=== PATIENT | female | born 1955 | race Caucasian/White ===

== ENCOUNTER 2019-08-01 13:46 | Inpatient (IN) | payer MEDICARE ==
[~2019-08-01] VITALS: Ht 162.6 cm; Wt 110.7 kg
[2019-08-01] MEDS ORDERED: PROAIR HFA8.5 G1 INH (14:14)
[2019-08-01] MEDS ORDERED: CBD OIL (14:14)
[2019-08-01] MEDS ORDERED: LEVEMIR IN100 UNITS/ SC (14:15)
[2019-08-01] MEDS ORDERED: GLYBURIDE5 M1 PO (14:16)
[2019-08-01] MEDS ORDERED: HYDROCODON-ACE1 EA10 PO (14:16)
[2019-08-01] MEDS ORDERED: FERROUS SULFAT325 MG PO (14:17)
[2019-08-01] MEDS ORDERED: LIPITOR40 MG PO (14:17)
[2019-08-01] MEDS ORDERED: [UNRECOGNIZED DRUG - OTHER] (14:18)
[2019-08-01] MEDS ORDERED: LISINOPRIL20 MG PO (14:19)
[2019-08-01] MEDS ORDERED: NEURONTIN 300300 MG PO (14:19)
[2019-08-01] MEDS ORDERED: SYNTHROID100 MCG PO (14:19)
[2019-08-01] MEDS ORDERED: GLUCOPHAGE1000 MG PO (14:20)
[2019-08-01] MEDS ORDERED: FUROSEMIDE20 MG PO (14:20)
[2019-08-01] MEDS ORDERED: MOBIC7.5 MG PO (14:20)
[2019-08-01] MEDS ORDERED: TUMERIC (14:21)
[2019-08-01] MEDS ORDERED: BAYER CHEWABLE81 MG PO (14:21)
[2019-08-01 14:26] VITALS: BP 155/67
[2019-08-01 14:32] LABS: BASOPHILS 0.3 % (0-2); EOSINOPHILS 8.3 % (0-7); HEMATOCRIT 30.7 % (36.0-48.0); HEMOGLOBIN 9.4 g/dL (12-16); IMMATURE GRANULOCYTES 0.1 % (0-5); LYMPHOCYTES 31.3 % (15-50); MCH 28.4 pg (26.0-34.0); MCHC 30.6 g/dL (31.0-37.0); MCV 92.7 fL (80.0-100.0); MONOCYTES 8.6 % (2-11); NEUTROPHILS 51.4 % (40-80); RBC 3.31 10x6/uL (4.00-5.40); WBC 7.9 10x3/uL (4.8-10.8)
[2019-08-01 14:35] LABS: CALC OSMOLALITY 293 mosm/kg (275-300); CALCIUM 8.8 mg/dL (8.5-10.1); CARBON DIOXIDE 25.3 mmol/L (21.0-32.0); CHLORIDE - SERUM 108 mmol/L (98-107); CREATININE - SERUM 1.5 mg/dL (0.6-1.3); GLUCOSE 123 mg/dL (74-106); POTASSIUM - SERUM 4.9 mmol/L (3.5-5.1); SODIUM 143 mmol/L (136-145); UREA NITROGEN 34 mg/dL (7-18); eGFR NON AFRICAN AMERICAN 37 mL/min (90-120)
[2019-08-01 14:38] LABS: INR 0.95 (0.85-1.17); PROTIME 12.6 SECONDS (11.6-15.0)
[2019-08-01 14:39] LABS: APTT 31.3 SECONDS (22.8-39.4); PLATELET COUNT 283 10x3/uL (130-400)
[2019-08-01 14:49] LABS: ALBUMIN 3.2 g/dL (3.4-5.0); ALKALINE PHOSPHATASE 73 U/L (30-120); ALT (SGPT) 27 U/L (10-68); CKMB 4.7 U/L (0.0-3.6); CREATINE KINASE 143 UL (21-215); MAGNESIUM - SERUM 2.4 mg/dL (1.8-2.4); PROTEIN - SERUM 6.7 g/dL (6.4-8.2)
[2019-08-01 14:50] LABS: TROPONIN-I < 0.017 ng/mL (0.000-0.060)
--- NOTE | 2019-08-01 16:46 | NUR ---
TRANSFER FROM ER BY STRETCHER. CALL LIGHT IN REACH. WILL CONT. PLAN OF CARE.
[2019-08-01 17:20] VITALS: BP 155/67; BMI 42.0
[2019-08-01 19:23] VITALS: BP 112/55
--- NOTE | 2019-08-01 19:38 | NUR ---
RECEIVED BEDSIDE REPORT. PATIENT IS ALERT AND ORIENTED, RESTING COMFORTABLY IN BED. RESPIRATIONS ARE EVEN AND UNLABORED. NO S/S OF DISTRESS. NO C/O PAIN. NEEDS MET. CALL LIGHT WITHIN REACH. WILL CPOC.
[2019-08-01 20:00] VITALS: BP 143/68
[2019-08-02] VITALS: BP 115/49
[2019-08-02 04:00] VITALS: BP 119/62
[2019-08-02 05:05] LABS: BASOPHILS 0.4 % (0-2); HEMATOCRIT 29.5 % (36.0-48.0); HEMOGLOBIN 8.9 g/dL (12-16); IMMATURE GRANULOCYTES 0.2 % (0-5); LYMPHOCYTES 30.9 % (15-50); MCH 28.3 pg (26.0-34.0); MCHC 30.2 g/dL (31.0-37.0); MCV 93.7 fL (80.0-100.0); MEAN PLATELET VOLUME 10.6 fL (7.4-10.4); MONOCYTES 8.2 % (2-11); NEUTROPHILS 52.3 % (40-80); PLATELET COUNT 314 10x3/uL (130-400); RBC 3.15 10x6/uL (4.00-5.40); RDW 13.4 % (11.5-14.5)
[2019-08-02 05:10] LABS: BILIRUBIN NEGATIVE (NEGATIVE); GLUCOSE 100 mg/dL (NEGATIVE); KETONE NEGATIVE (NEGATIVE); NITRITE NEGATIVE (NEGATIVE); UROBILINOGEN NORMAL (NORMAL)
[2019-08-02 05:11] LABS: BACTERIA FEW /hpf (NEGATIVE); EPITHELIAL CELLS 0-5 /hpf (0-5); RED CELLS - URINE 0-5 /hpf (0-5); WHITE CELLS - URINE 0-5 /hpf (NEGATIVE)
[2019-08-02 05:18] LABS: ALBUMIN 2.9 g/dL (3.4-5.0); ANION GAP 12.4 mmol/L (8-16); BILIRUBIN - TOTAL 0.25 mg/dL (0.2-1.3); CALCIUM 8.7 mg/dL (8.5-10.1); CARBON DIOXIDE 24.6 mmol/L (21.0-32.0); CREATININE - SERUM 1.7 mg/dL (0.6-1.3); MAGNESIUM - SERUM 2.1 mg/dL (1.8-2.4); PHOSPHOROUS 4.9 mg/dL (2.5-4.9); PROTEIN - SERUM 6.1 g/dL (6.4-8.2)
--- NOTE | 2019-08-02 07:15 | NUR ---
RECIEVED PT IN BED AAOX4 RESP UNLABORED SKIN W/D COLOR WNL NAD NOTED PT DENIES ANY PAIN OR DISCOMFORT
[2019-08-02 10:17] VITALS: BP 119/56
[2019-08-02 11:30] VITALS: Ht 162.6 cm; Wt 110.7 kg
[2019-08-02] MEDS ORDERED: ELIQUIS5 MG PO (14:07)
[2019-08-02] MEDS ORDERED: BETAPACE 80 MG80 MG PO (14:10)
--- NOTE | 2019-08-02 17:40 | NUR ---
REVIEWED DISCHARGE INSTRUCTIONS WITH PT STATE UNDERSTANDING COPY GIVEN PT DISCHARGED HOME LEFT UNIT VIA W/C IN STABLE CONDITION WITH ALL PERSONAL BELONGINGS
--- NOTE | 2019-08-05 10:00 | EC ---
PATIENT:OLGA LIDIA GAMA DATE OF SERVICE: 08/01/19 SEX: F MEDICAL RECORD: [id number] DATE OF : 53 LOCATION:D.M2 D.211 AGE OF PATIENT: 64 ADMISSION DATE: 08/01/19 REFERRING PHYSICIAN: INTERPRETING PHYSICIAN: LISET RECINOS MD ECHOCARDIOGRAM REPORT ECHO CHARGES 4 ECHO COMPLETE Date: 08/02/19 CLINICAL DIAGNOSIS: NEW ONSET AFIB, EDEMA, ELEVATED BNP, SOB, AK ECHOCARDIOGRAPHIC MEASUREMENTS (adult normal given) AC root (d.<3.7cm) 2.5 cm LV Septum d (<1.2 cm> 1.1 cm Valve Excursion 1.6 cm LV Septum (systole) 1.4 cm Left Atria (s.<4.0cm> 5.3 cm LVPW d(<1.2cm) 1.1 cm RV (d.<2.3cm) 2.6 cm LVPW (sytole) 1.2 cm LV diastole(<5.6CM) 5.6 cm MV E-F(>70mm/sec) cm LV systole 4.8 cm LVOT Diameter 1.8 cm MV exc.(>10mm) cm Est.ejection fraction (50-75%) % DOPPLER: LVIT cm/sec A 61 cm/sec E 147 cm/sec LA cm/sec RVSP 20.7 mmHg LVOT 98 cm/sec AOP1/2T m/s Asc. Ao 158 cm/sec RVOT 88 cm/sec RA cm/sec PA 93 cm/sec AV Gradient Peak 10.0 mmHg AV Mean 5.2 mmHg AV Area 1.7 cm MV Gradient Peak 12.4 mmHg MV Mean 5.4 mmHg MV Area cm COMMENTS: Roof Bolter Helper: Pretty ROBLERO Concrete Finisher: 3 Dr. Rodriguez TAPE# PACS Pericardial Effusion N DATE OF SERVICE: Adequate 2D, color flow imaging, spectral Doppler, and M-Mode No LVH. LV internal dimensions are normal. Wall motion is normal. EF is greater than or equal to 55%. Aortic valve is tricuspid. No evidence of stenosis by Doppler interrogation. Left atrium is dilated at 5.3 cm. Mitral valve shows no prolapse. Mild plus MR. Right-sided chambers are grossly normal. Trace TR. ECHOCARDIOGRAM REPORT [id number] OLGA LIDIA GAMA TRANSINT:[id number] Voice Confirmation ID: [id number] DOCUMENT ID: [id number] LISET RECINOS MD at 1000 CC: [id number] DICTATION DATE: 08/02/19 1121 ART DEALER: 08/02/19 1347 DIS IN 08/02/19 [place] [id number] [place] [id number]
--- NOTE | 2019-08-05 12:02 | MORECARE ---
CASE MANAGEMENT DISCHARGE SUMMARY PATIENT: OLGA LIDIA GAMA UNIT: [id number] ADM DATE: 08/01/19 AGE: 64 : 54 SEX: F ROOM/BED: D.9871 AUTHOR: AISLINN FRANCIS PHYSICIAN: REFERRING PHYSICIAN: HERMES VENCES MD DATE OF SERVICE: 08/05/19 Discharge Plan Patient Name: OLGA LIDIA GAMA [facility] : 1955 Planned Disposition: Anticipated Discharge Date: Discharge Date: 08/02/2019 Expected LOS: 0 Initial Reviewer: [email or web address] Initial Review Date: 08/05/2019 Generated: 08/05/19 1:01 pm Patient Name: OLGA LIDIA GAMA Page [id number] at 1202 All edits/amendments must be made on the electronic document DICTATION DATE: 08/05/19 1201 THREAD GRINDER: KATELIN 08/05/19 1201 RPT#: [id number] DC DATE:08/02/19 STATUS: DIS IN [facility] [address] [place] [address] END OF REPORT
== END 2019-08-02 17:40 | disposition home or self-care (01) | DRG 309 ==
LOC: D.ER 13:46 → D.M2 14:53 → D.SDCHOLD 08-02 16:31 → D.M2 08-02 16:33
PROVIDERS: Family Medicine; ADMIT Internal Medicine Nephrology; ATTEND Internal Medicine Nephrology
DX: I48.20 Chronic atrial fibrillation, unspecified (principal); N17.9 Acute kidney failure, unspecified; Z68.41 Body mass index [BMI] 40.0-44.9, adult; D64.9 Anemia, unspecified; I10 Essential (primary) hypertension; E78.5 Hyperlipidemia, unspecified; M19.90 Unspecified osteoarthritis, unspecified site; E03.9 Hypothyroidism, unspecified; E66.01 Morbid (severe) obesity due to excess calories; E11.40 Type 2 diabetes mellitus with diabetic neuropathy, unspecified; Z79.4 Long term (current) use of insulin

== ENCOUNTER 2019-08-20 11:28 | Outpatient (CLI) | payer MEDICARE ==
[~2019-08-20] VITALS: Ht 162.6 cm; Wt 112.6 kg
--- NOTE | ~2019-08-20 | HEMODYNAMI ---
PATIENT:OLGA LIDIA GAMA MEDICAL RECORD: [id number] : 53 LOCATION:D.CAT ADMISSION DATE: 08/20/19 Generatedon:08/20/201913:06 Patient name: OLGA LIDIA GAMA Patient #: [id number] : 1955 Date of study: 08/20/2019 Page: Of Hemodynamic Procedure Report Patient Data Patient Demographics Procedure consent was obtained First Name: OLGA LIDIA Gender: Female Last Name: NATAN : 1955 [facility] Initial: L Age: 64 year(s) Patient #: [id number] Race: SSN: [id number] Additional ID: [id number] Contact details Address: [address] [place] [address] State: [place] City: [place] Zip code: [address] Admission Admission Data Admission Date: 08/20/2019 Admission Time: 11:28 Arrival Date: 08/20/2019 Arrival Time: 13:30 Admit Source: Other Insurance Payor: Medicare [facility] #: [id number] Height (in.): 63.78 BSA: 2.13 (m2) Height (cm.): 162 BMI: 42.68 (kg/m2) Weight (lbs.): 246.92 Weight (kg.): 112 Lab Results Lab Result Date: 08/20/2019 Lab Result Time: 0:00 Biochemistry Name Units Result Min Max BUN mg/dl 28 --(----)-* 7 18 Creatinine mg/dl 1.2 --(---*)-- 0.6 1.3 Procedure Procedure Types Cath Procedure Diagnostic Procedure Cardioversion External TOM Procedure Description Procedure Date Procedure Date: 08/20/2019 Procedure Start Time: 12:54 Procedure End Time: 13:01 Procedure Staff Name Function Declan Lopez MD Performing Physician Nisa [place] Program Technician Hilary Franco RT Monitor Nilda Balbuena RN Nurse Billy Do MD Additional personnel Procedure Data Cath Procedure Fluoroscopy Diagnostic fluoroscopy Total fluoroscopy Time: 0 time: 0 min min Diagnostic fluoroscopy Total fluoroscopy dose: 0 dose: 0 mGy mGy Contrast Material Contrast Material Type Amount (ml) Isovue 300 0 Estimated blood loss: 5 ml Procedure Complications No complications Procedure Medications Medication Administration Route Dosage Oxygen etCO2 Nasal cannula 2 l/min Hurricaine Sidney P.O. 1 Sprays Refer to Anesthesia Notes for Sedation Medications Hemodynamics Rest BSA: 2.13 (m2) O2 Consumption: Estimated: 216.45 (ml/min) O2 Consumption indexed : Estimated:101.62 (ml/min/m) Heart Rate: 92 (bpm) Snapshots Pre Cath Intra NCS Post Cath Vital Signs Time Heart Resp SPO2 etCO2 NIBP (mmHg) Rhythm Pain Sedation Rate (ipm) (%) (mmHg) Status Level (bpm) 12:48:37 95 16 94 0 147/83(112) A-Flutter (Missing) 10(A) 12:52:55 106 31 98 26.1 155/91(116) A-Fib (Missing) 10(A) 12:56:16 91 11 93 27.6 116/72(99) A-Fib (Missing) 9(A) 13:00:30 64 14 96 41 128/65(98) NSR (Missing) 9(A) 13:02:33 61 18 96 40.3 102/57(89) NSR (Missing) 10(A) Medications Time Medication Route Dose Verified Delivered Reason Notes Effectiv eness by by 12:53:09 Oxygen etCO2 2 Declan Munguia used for Nasal l/min St Neo Balbuena RN procedure cannula 12:53:19 Hurricaine P.O. 1 Declan Munguia Per Sidney Sprays St Neo Balbuena RN physician 12:53:23 Refer to Declan Munguia Anesthesia St Neo Balbuena RN Notes for Sedation Medications Procedure Log Time Note 12:34:13 Informed consent obtained and on chart 12:34:21 Arrival Date: 08/20/2019 1:30:00 PM 12:34:38 Admit Source: Other 12:34:41 Insurance Payor : Medicare 12:37:24 Patient Height : 63.78 inches 12:37:27 Patient Weight : 246.92 lbs 12:38:49 Lab Result : Creatinine 1.2 mg/dl 12:38:49 Lab Result : BUN 28 mg/dl 12:38:54 Diagnostic Cath Status : Elective 12:39:20 Procedure Status TOM. 12:39:23 Nilda Balbuena RN sent for patient. Start room use. 12:39:24 Time tracking: Regular hours (M-F 7:00 - 5:00) 12:39:27 Plan of Care:Hemodynamics will remain stable., Cardiac rhythm will remain stable., Comfort level will be maintained., Respiratory function will remain adequate., Patient/ family verbilizes understanding of procedure., Procedure tolerated without complication., Recovers from procedure without complications.. 12:41:01 Patient received from Pre/Post Procedure Room to CCL 3 Alert and oriented. Tansferred to table in Supine position. 12:41:02 Warm blankets applied, and arvin hugger turned on for patient comfort. 12:41:03 Correct patient and procedure confirmed by team. 12:41:03 ECG and BP/O2 sat monitors applied to patient. 12:42:23 Baseline sample Acquired. 12:42:23 Vital chart was started 12:44:18 Baseline sample Acquired. 12:44:27 H&P Date Dictated: 08/20/2019 Within 30 days and on chart., H&P Addendum completed by physician on day of procedure. (MUST COMPLETE FOR ALL OUTPATIENTS). 12:44:28 Pre-procedure instructions explained to patient. 12:44:29 Pre-op teaching completed and patient verbalized understanding. 12:44:30 Family in patients room. 12:44:32 Patient NPO since Midnight. 12:44:34 Is the patient allergic to Iodine/contrast media? No. 12:44:35 Was the patient premedicated? No 12:45:09 Patient diabetic? Yes. 12:45:11 If diabetic: On Metformin? No 12:45:13 Is patient on blood thinner?Yes 12:45:18 ACC The patient was administered the following blood thiners within the last 24 hours: Eliquis 12:45:21 Previous problem with sedation/anesthesia? No ? 12:45:23 Snore? Yes 12:45:24 Sleep apnea? No 12:45:27 Deviated septum? No 12:45:27 Opens mouth fully? Yes 12:45:28 Sticks out tongue? Yes 12:45:31 Airway obstruction? Yes asthma 12:45:40 Dentures? No ? 12:46:03 IV patent on arrival in left forearm with 0.9% NaCl at KVO. 12:46:07 Lab results completed and on chart. 12:46:20 Alarms reviewed by R. N. 12:46:21 Sharps counted by scrub and verified by R.N. 12:49:04 Baseline sample Acquired. 12:49:10 Rhythm: atrial fibrillation 12:52:03 Billy Do MD present and monitoring patient for TIVA. 12::04 --------ALL STOP TIME OUT------ 12::04 Final Timeout: patient, procedure, and site verified with staff and physician. All members of the team are in agreement. 12:52:10 Fire Safety Assessment: C--Open oxygen or nitrous oxide is being used. 12:52:12 Physical assessment completed. ASA score P 2 - A patient with mild systemic disease as per Declan Lopez MD. 12:52:17 Sedation plan: TIVA Medication:Propofol 12:53:09 Oxygen 2 l/min etCO2 Nasal cannula was administered by Nilda Balbuena RN; used for procedure; Verbal order read back and verified. 12:53:11 Defibrillator synced and charged to 200 Joules. 12:53:19 Hurricaine Sidney 1 Sprays P.O. was administered by Nilda Balbuena RN; Per physician; Verbal order read back and verified. 12:53:19 [facility] Tobacco Stripper present for TOM. 12:53:22 TOM started. 12:53:23 Refer to Anesthesia Notes for Sedation Medications was administered by Nilda Balbuena RN; ; Verbal order read back and verified. 12:53:32 Procedure started. 12:53:33 Full Disclosure recording started 12:53:36 Procedure type changed to Cath procedure, Diagnostic procedure, Cardioversion External, TOM 12:55:31 Quick combo pads placed on patients chest and back. 12:57:55 TOM completed. 12:58:06 Shock delivered. 12:58:38 Patient cardioverted to sinus rhythm . 12:58:50 Procedure ended.(Physican Out) 12:59:31 Fluoroscopy time 00.00 minutes. 12:59:35 Fluoroscopy dose: 0 mGy 12:59:35 Flurop Dose total: 0 12:59:48 Dose Area Product 0 mGy/cm. 12:59:52 Contrast amount:Isovue 300 0ml. 12:59:54 Maximum allowable dose exceeded? No. 12:59:55 Sharps counted by scrub and verified by R.N. 13:00:00 Post procedure rhythm: sinus rhythm 13:00:03 Estimated blood loss: 5 ml 13:00:04 Post procedure instruction explained to patient.Patient verbalizes understanding. 13:00:06 Patient needs reinforcement of post procedure teaching. 13:00:07 Procedure and supply charges have been captured, reviewed, submitted and are correct. 13:00:19 Procedure Complication : No complications 13:00:22 Vital chart was stopped 13:01:11 TOM Findings: TOM w/ cardioversion: no left atrial clot noted (proceed with cardioversion) 13:01:15 Operative report dictated upon procedure completion. 13:01:15 See physician's report for complete and final results. 13:01:17 Report given to Pre/Post Procedure Room. 13:01:20 Patient transfered to Pre/Post Procedure Room with Stretcher. 13:01:22 Procedure ended. 13:01:22 Full Disclosure recording stopped 13:01:26 End room use (Document Last) 13:01:51 Quick Combo opened to sterile field. 13:02:18 Quick Combo opened to sterile field. Device Usage Item Manufacture Quantity Catalog Hospital Part Current Minimal Lot# / Name Number Charge Number [facility] [employer] 2 [id number] 5 Combo Signature Audit [place] Stage Time Signature Unsigned Intra-Procedure 08/20/2019 Hilary Franco 1:02:18 PM RT(R) Intra-Procedure 08/20/2019 Nilda Balbuena RN 1:02:55 PM Intra-Procedure 08/20/2019 Declan Ramos 1:06:30 PM Neo [place]NI [place] [address] [place] [address]
[~2019-08-20 11:28] MED LIST: BAYER CHEWABLE81 MG PO; BETAPACE 80 MG80 MG PO; CBD OIL; ELIQUIS5 MG PO; FERROUS SULFAT325 MG PO; FUROSEMIDE20 MG PO; GLUCOPHAGE1000 MG PO; GLYBURIDE5 M1 PO; HYDROCODON-ACE1 EA10 PO; LEVEMIR IN100 UNITS/ SC; LIPITOR40 MG PO; LISINOPRIL20 MG PO; MOBIC7.5 MG PO; NEURONTIN 300300 MG PO; PROAIR HFA8.5 G1 INH; SYNTHROID100 MCG PO; TUMERIC; [UNRECOGNIZED DRUG - OTHER]
[2019-08-20 12:15] VITALS: BP 153/87; Ht 162.6 cm; Wt 112.6 kg
[2019-08-20 12:29] LABS: BASOPHILS 0.4 % (0-2); EOSINOPHILS 4.7 % (0-7); HEMATOCRIT 32.6 % (36.0-48.0); HEMOGLOBIN 10.1 g/dL (12-16); IMMATURE GRANULOCYTES 0.2 % (0-5); LYMPHOCYTES 30.2 % (15-50); MCV 90.3 fL (80.0-100.0); MONOCYTES 10.6 % (2-11); NEUTROPHILS 53.9 % (40-80); PLATELET COUNT 303 10x3/uL (130-400); RBC 3.61 10x6/uL (4.00-5.40); RDW 12.9 % (11.5-14.5); WBC 9.1 10x3/uL (4.8-10.8)
[2019-08-20 12:33] LABS: ANION GAP 12.3 mmol/L (8-16); CALCIUM 9.4 mg/dL (8.5-10.1); CARBON DIOXIDE 26.7 mmol/L (21.0-32.0); CREATININE - SERUM 1.2 mg/dL (0.6-1.3)
[2019-08-20 12:44] LABS: INR 1.19 (0.85-1.17)
--- NOTE | 2019-08-20 13:10 | NUR ---
PT REC'D TO ROOM 4 VIA STRETCHER, AWAKE AND ORIENTED. MONITORS ESTAB. DAUGHTER AT BS. SEE ECOLOGICAL MODELER. ALARMS ON AND C/L IN REACH.
--- NOTE | 2019-08-20 13:25 | NUR ---
VSS. CM - SR, HR 61. B/P 131/64. PT DENIES PAIN OR NEEDS.
--- NOTE | 2019-08-20 13:55 | NUR ---
PT RESTING QUIETLY, REPORTS "I CAN BREATHE BETTER". VSS. ALARMS ON AND C/L IN REACH.
--- NOTE | 2019-08-20 14:15 | NUR ---
VSS. CM - NSR. PIV D/C'D INTACT AND DSG APPLIED. PT ALLOWED UP TO GET DRESSED.
--- NOTE | 2019-08-20 14:20 | NUR ---
PT UP TO BR INDEPENDENTLY. ALL DISCHARGE INSTRUCTIONS REVIEWED WITH PT AND DAUGHTER, PT VERBALIZES UNDERSTANDING OF RESTRICTIONS, CONT HOME MEDS, AND FOLLOW- UP APPT. PT D/C'D VIA PRIVATE VEHICLE WITH DAUGHTER. PT HAS ALL PAPERWORK AND BELONGINGS.
--- NOTE | 2019-08-22 08:17 | TEE ---
PATIENT:OLGA LIDIA GAMA MEDICAL RECORD: [id number] LOCATION:D.CAT AGE OF PATIENT: 64 ADMISSION DATE: 08/20/19 SEX: F REFERRING PHYSICIAN: INTERPRETING PHYSICIAN: LISET RECINOS MD TRANSESOPHAGEAL ECHOCARDIOGRAM Date: 08/20/19 TOM CHARGE Y INDICATIONS: AFIB PREMEDICATIONS: PATIENT'S RESPONSE PROCEDURE DOPPLER MEASUREMENTS: LVIT LA PA RA LVOT RVOT Asc. Ao AV Gradient Peak AV Mean AV Area MV Gradient Peak MV Mean MV Area INTERPRETATION: Doppler: 2-D: COLOR FLOW DOPPLER NORMAL SALINE STUDY: MISCELLANOUS: DIAGNOSIS: PLAN: Finishing Range Feeder:3 Dr. Rodriguez Bank Worker: Pretty ROBLERO COMMENTS: DATE OF SERVICE: 08/20/2019 TRANSESOPHAGEAL NOTE DESCRIPTION OF PROCEDURE: After general sedation via TIVA via anesthesia, transesophageal Omniplane probe was placed in the distal esophagus and proximal stomach without difficulty. FINDINGS: As follows, LVH is present. LV internal dimensions are normal. Wall TRANSESOPHAGEAL ECHOCARDIOGRAM REPORT [id number] OLGA LIDIA GAMA motion is normal. EF of 55%. Aortic valve is tricuspid with good valve excursion. No AI is noted. Left atrium is well visualized, appears of normal dimensions. Left atrial appendage is well visualized with good contractility via Doppler and no evidence of thrombus. Mitral valve was well visualized. No prolapse and no structural abnormalities. Mild MR. Right-sided chambers are grossly normal. Trace TR. During the procedure, the patient was monitored continuously with pulse oximetry, telemetry, and blood pressure monitoring. TRANSINT:[id number] Voice Confirmation ID: [id number] DOCUMENT ID: [id number] at 0817 CC: [id number] DICTATION DATE: 08/20/19 1337 CLERK CARRIER: 08/21/19 0935 DEP CLI 08/20/19 [facility] [address] [place] [id number]
--- NOTE | 2019-08-22 08:17 | OP ---
PATIENT NAME: OLGA LIDIA GAMA MEDICAL RECORD: [id number] :53 LOCATION:D.CAT ADMISSION DATE: SURGEON: LISET RECINOS MD DATE OF OPERATION: 08/20/2019 PROCEDURE: Cardioversion. DESCRIPTION OF PROCEDURE: After general sedation via TIVA via anesthesia, a single synchronized shock at 200 joules was successful in restoring atrial fibrillation to normal sinus rhythm. IMPRESSION: Successful cardioversion on Olga Lidia Gama. During the procedure, the patient was monitored continuously with pulse oximetry and telemetry. TRANSINT:[id number] Voice Confirmation ID: [id number] DOCUMENT ID: [id number] LISET RECINOS MD at 0817 CC: [id number] DICTATION DATE: 08/20/19 1338 COB SAWYER: 08/20/19 1741 DEP CLI 08/20/19 [place] [id number] [place] [address]
== END 2019-08-20 14:20 | disposition home or self-care (01) ==
LOC: D.CATH 11:28
PROVIDERS: ATTEND Internal Medicine Interventional Cardiology
DX: I48.91 Unspecified atrial fibrillation (principal)

== ENCOUNTER → 2019-09-03 21:00 | Outpatient (CLI) | payer MEDICARE ==
[2019-08-20 12:15] VITALS: BMI 42.6
[2019-09-03 21:31] LABS: ALBUMIN 3.9 g/dL (3.4-5.0); BILIRUBIN - TOTAL 0.23 mg/dL (0.2-1.3); CALCIUM 9.1 mg/dL (8.5-10.1); CARBON DIOXIDE 29.7 mmol/L (21.0-32.0); CREATININE - SERUM 1.8 mg/dL (0.6-1.3); POTASSIUM - SERUM 4.7 mmol/L (3.5-5.1); PROTEIN - SERUM 7.1 g/dL (6.4-8.2)
[2019-09-05 14:09] LABS: SPE - A/G RATIO 1.2 (0.7-1.7); SPE - ALBUMIN 3.6 g/dL (2.9-4.4); SPE - ALPHA-1 GLOBULIN 0.2 g/dL (0.0-0.4); SPE - ALPHA-2 GLOBULIN 0.8 g/dL (0.4-1.0); SPE - GAMMA GLOBULIN 0.8 g/dL (0.4-1.8); SPE - M-SPIKE Not Observed g/dL (Not Observed); SPE - TOTAL PROTEIN 6.6 g/dL (6.0-8.5)
== END | disposition home or self-care (01) ==
LOC: D.LABREF 21:00
PROVIDERS: ATTEND Nurse Practitioner
DX: R60.0 Localized edema (principal); R06.00 Dyspnea, unspecified